=== PATIENT | female | born 1990 | race Caucasian/White ===

== ENCOUNTER 2020-07-13 18:00 | Inpatient (IN) | payer SELFPAY, OTHER ==
[2020-07-13 18:31] VITALS: BMI 31.4
[2020-07-13] MEDS: Lactated Ringers 1,000 ML 15 ML IV (18:50)
[2020-07-13 19:21] VITALS: PULSE 99; O2SAT 99
[2020-07-13 19:22] VITALS: BP 118/69; PULSE 102
[2020-07-13 19:31] LABS: Bacteria 0 SEEN /hpf (None Seen); Mucous, Urine 0 SEEN /hpf (<or=2+); Red Blood Cells-Urine 0 SEEN /hpf (0-5); White Blood Cells 0 SEEN /hpf (0-5)
[2020-07-13 19:37] LABS: Absolute Lymphocyte Count 2.63 X10^3/uL (0.83-4.51); Absolute Neutrophil Count 4.5 X10^3/uL (2.0-7.7); Basophil# 0.02 X10^3/uL; Basophil% 0.3 % (0-1); Eosinophil# 0.15 X10^3/uL; Eosinophils% 1.9 % (0-5); Hematocrit 40.9 % (37-47); Hemoglobin 13.3 g/dL (12.0-15.0); Lymphocyte # 2.63 X10^3/ul (0.83-4.51); Lymphocyte % 34.1 % (19-41); Mean Corp Hgb Conc 32.5 g/dL (32-36); Mean Corpuscular Volume 95.3 fL (81-99); Mean Platelet Vol. 9.7 fl (6.2-12.0); Monocyte% 5.2 % (0-10); NRBC Flagged by Analyzer 0 % (0-5); Neutrophil # 4.49 X10^3/uL (2.7-7.7); Neutrophil % 58.1 % (47-70); Platelet Count 192 K/mm3 (150-450); RBC Distribution Width CV 12.4 % (11.6-14.6); RBC Distribution Width SD 43.6 fl (35.1-43.9); Red Blood Count 4.29 M/mm3 (4.2-5.4); White Blood Count 7.7 K/mm3 (4.4-11.0)
[2020-07-13 19:41] LABS: Color, Urine Straw (Yellow); Glucose, Dipstick Normal (Normal); Ketone-Dipstick Negative (Negative); Leukocyte Esterase-Dipstick 25 /ul (Negative); Nitrite-Dipstick Negative (Negative); Occult Blood-Urine Negative /ul (Negative); Protein-Dipstick Negative (Negative); Urine Bilirubin Dipstick Negative (Negative); Urine Clarity Clear (Clear); Urine Urobilinogen Normal (Normal); Urine pH 6.5 (5.0 - 8.0)
[2020-07-13 19:52] LABS: Squamous Epithelial Cells - UA 0-5 SEEN /hpf (5-10)
[2020-07-13 19:58] LABS: Hemoglobin A1c 5.2 % (3.8-5.6)
[2020-07-13 19:59] LABS: Thyroid Stim Hormone (TSH) 1.24 uIU/mL (0.358-3.74)
[2020-07-13 20:01] VITALS: TEMP 37.2
[2020-07-13] MEDS: miSOPROStol 200 MCG Tablet 800 MCG VAGINAL (20:16)
--- NOTE | 2020-07-13 20:31 | HP.PCM.OB_ITS ---
HPI - General General Date of Admission: 07/13/20 HPI Narrative VALORIE TY, is a 29 F who presents for an induction of labor secondary to demise. She is supposed be 25 weeks along according to her LMP and first feeling movement however ultrasound by her leaf sorter on Monday confirm demise and infant is measuring small around 18 weeks with suspected demise a few weeks ago. She denies any vaginal bleeding or loss of fluid admits decreased movement in the last week or 2. She had an infection with respiratory symptoms in the beginning of but was never tested for Covid. There is no significant family medical history per patient. Maternal Data Information BAY[facility] Calculator Estimated Delivery Date Method Current WG Current Estimate 10/24/20 Manual 25w 2d per LMP? Other Estimates 09/23/20 LMP (Certain) 29w 5d PFSH Medical History (Updated 07/13/20 @ 20:[address] Yue Bowen MD) Family history of hearing loss at age younger than 7 years Allergy/AdvReac Type Severity Reaction Status Date / Time No Known Allergies Allergy Verified 07/13/20 18:52 Social History Smoking Status: Never smoker History Elective abortions Hx Para 6 Spontaneous abortions Hx # Term Pregnancies Ectopic pregnancies Hx # Pregnancies Multiple births # of living children Visit Details OB Flowsheet Initial Weight: Not Recorded Date -?-?-?-?-?-?-?-?-?-?-?-?- EGA Weight BP Urine Prot -?-?-?-?-?-?-?-?-?-?-?-?- Glucose FHR FuHt Pres Dilation -?-?-?-?-?-?-?-?-?-?-?-?- Effaced St Visit Note 07/13/20 -?-?-?-?-?-?-?-?-?-?-?-?- 25w 2d 183 lb 3.266 oz 118/69 Negative mg/dl (Negative) -?-?-?-?-?-?-?-?-?-?-?-?- -?-?-?--?-?-?-?-?-?-?-?-?- NST FHR Rate Baby A Baseline: 0 Assessment Assessment Detail: Bedside ultrasound performed and normal amniotic fluid level seen fetus in breech presentation with no color Doppler flow and no heart tones seen. Large amount of scalp edema seen ROS Constitutional Constitutional: Reports systems reviewed and no addt'l complaints, except as documented ENT HEENT: Reports systems reviewed and no addt'l complaints, except as documented Cardiovascular Cardiovascular: Reports systems reviewed and no addt'l complaints, except as documented Respiratory/Chest Respiratory/Chest: Reports systems reviewed and no addt'l complaints, except as documented Gastrointestinal Gastrointestinal: Reports systems reviewed and no addt'l complaints, except as documented; Denies abdominal pain, nausea or vomiting Genitourinary Genitourinary: Reports systems reviewed and no addt'l complaints, except as documented and movement Details: absent; Denies contractions Musculoskeletal Musculoskeletal: Reports systems reviewed and no addt'l complaints, except as documented Neurologic Neurologic: Reports systems reviewed and no addt'l complaints, except as documented Endocrine Endocrinology: Reports systems reviewed and no addt'l complaints, except as documented Vital Signs Vital Signs Vital Signs: 07/13/20 19:21 07/13/20 19:22 07/13/20 20:01 Temperature 99.0 F Temperature Source Temporal Pulse Rate 99 102 H Blood Pressure 118/69 BP Systolic 118 BP Diastolic 69 Pulse Ox 99 Physical Exam Const alert, oriented x3, no apparent distress and healthy appearing HEENT normocephalic and moist oral mucous membranes Head and Scalp: atraumatic Neck full ROM, no lymphadenopathy, supple and thyroid normal General: trachea midline Lymph Lymphatic: no lymphadenopathy noted Chest inspection of chest normal Resp normal respiratory effort Cardio regular rate GI normal to inspection, nondistended, normoactive bowel sounds, soft to palpation and non-tender Inspection: gravid external exam normal Manual OB Exam: estimated gestational size small, presentation breech, dilated 0, effaced 0 and station -3 Extremity normal to inspection General Extremity: Negative for edema Skin no rashes or lesions noted Neuro deep tendon reflexes 2+ bilaterally Motor Exam: strength 5/5 throughout and clonus absent Psych mental status grossly normal Labs Labs Labs: Blood Type Pending Antibody Screen Pending Hct 40.9 % (37-47) Hgb 13.3 g/dL (12.0-15.0) Assessment & Plan (1) demise, greater than 22 weeks, antepartum: QUALIFIERS: Fetus number: single or unspecified fetus Qualified Code(s): O36.4XX0 - Maternal care for intrauterine , not applicable or unspecified PLAN: Patient presents IOL, plan management for with Cytotec. Pain management: Oral pain control, IV or epidural per patient request. Management of any complications: demise?blood work ordered for evaluation I have reviewed the [facility] and made any clinically relevant updates. (2) Grand multipara: COMMENT: 6 previous home births uncomplicated (3) No care in current : QUALIFIERS: Trimester: second trimester Qualified Code(s): O09.32 - Supervision of with insufficient care, second trimester COMMENT: leaf sorter MAUREEN, US 07/09 confirmed demise measuring behind 18 weeks
[2020-07-13] MEDS: oxyCODONE 5 MG Tablet PO (23:54)
[2020-07-14] VITALS (19 sets, daily range): BP systolic 92–111; BP diastolic 51–68; PULSE 76–95; RESP 18; TEMP 37–38.6; O2SAT 97–100
[2020-07-14] MEDS: miSOPROStol 200 MCG Tablet 400 MCG PO (00:59)
--- NOTE | 2020-07-14 01:15 | EX.PCM.OBRPT ---
Assessment & Plan (1) Trisomy 13 of fetus: COMMENT: suspected based on physical exam, abnormal facies with clieft lip/palate, micrognathia, cystic hygroma, demise. (2) Vaginal delivery: COMMENT: 25 weeks (measuring 18) SM IOL cytotec (3) No care in current : QUALIFIERS: Trimester: second trimester Qualified Code(s): O09.32 - Supervision of with insufficient care, second trimester COMMENT: limousine driver MAUREEN, 07/09 confirmed demise measuring behind 18 weeks (4) Grand multipara: COMMENT: 6 previous home births uncomplicated (5) demise, greater than 22 weeks, antepartum: QUALIFIERS: Fetus number: single or unspecified fetus Qualified Code(s): O36.4XX0 - Maternal care for intrauterine , not applicable or unspecified Maternal Data Information BAY[facility] Calculator Estimated Delivery Date Method Current WG Current Estimate 10/24/20 Manual 25w 3d per LMP? Other Estimates 09/23/20 LMP (Certain) 29w 6d Vaginal Delivery Maternal Presentation Maternal Presentation: Medically Indicated Induction Maternal Presentation: 29-year-old G7, P6 at 25 weeks presents for induction of labor secondary to demise diagnosed by her limousine driver. Ultrasound showed fetus measuring 18 weeks Type of Induction: Cytotec Medical Reason for Induction: demise (25 weeks gestational age per LMP measuring 18 weeks) Operative Information Date of Procedure: 07/14/20 Pre-Operative Diagnosis: demise Post-Operative Diagnosis: same plus genetic abnormality suspect trisomy 13 Surgery / Procedure Performed: Spontaneous Vaginal Delivery Type of Anesthesia: None Estimated Blood Loss: 100 Fluids Replaced: crystalloid Findings Description of Procedure: Patient began pushing and delivered the intact amniotic sac with fetus contained within incomplete breech presentation. After several minutes after delivery of the body the head delivered spontaneously with pushing. Cord was clamped and cut and infant analyzed visually and noted to have severely abnormal facies and a large cystic hygroma. Visible and adequate fusion of the facial structures with suspected cleft lip and cleft palate was seen. Low-set ears and micrognathia as well as poorly formed genitalia but appeared to be male. Expectant management was then done to wait for spontaneous delivery of the placenta. Presentation: Complete Breech Amniotic Membrane Rupture Type: Spontaneous Amniotic Fluid Description: Cloudy Placental Delivery Description: Spontaneous Placenta Disposition: [facility] Cord Vessel Description: 3 Vessels Cord Entanglement: None A Gender: Male (1 minute): 0 (5 minute): 0 Post Vaginal Delivery Medications Given After Delivery: - (cytotec) Episiotomy Description: None Laceration: None Complication Complications: None Procedures Urinary/Genital [id number]: [id number] Vaginal Delivery Only ( demise 25 weeks measuring 18 weeks)
--- NOTE | 2020-07-14 01:20 | PCM.DC ---
Discharge Instructions Diet Discharge Diet: No restrictions Activity Discharge Activity: Return to Normal Activity, May not drive while taking narcotic pain medications. and May Shower May resume sexual activity in: 4-6 weeks Dressing / Incision Call your doctor if your incision/area has: Continuous Slow Oozing, Sudden Increased Bleeding, Increased Pain/ Swelling, Increased Redness and Foul Smelling Discharge Follow Up Care Please Follow Up With: Yue Bowen MD When: Call [phone] to make an appointment with your doctor in 6 weeks. If you had elevated blood pressure or 4th degree laceration, you will need to be seen in 2 weeks. Test Results: Test results from this visit will be discussed in further detail at your follow-up appointment, if applicable. Discharge Plan Admission Admit Date/Time: 07/13/20 18:00 Attending Provider: Yue Bowen
--- NOTE | 2020-07-14 04:23 | NURSING ---
infant weight 4.9oz, 140grams; length 7.5inches long; head circumference 5inches; completed @ 0320 07/14/20
[2020-07-14] MEDS: Naproxen 250 MG Tablet 500 MG PO (07:23)
--- NOTE | 2020-07-14 08:19 | NURSING ---
appropriate for demise
== END 2020-07-14 09:50 | disposition home or self-care (01) | DRG 807 ==
PROVIDERS: Admitting Provider Obstetrics & Gynecology; Visit Provider Obstetrics & Gynecology
DX: O36.4XX0 Maternal care for intrauterine death, not applicable or unspecified (principal); Z37.1 Single stillbirth; Z3A.25 25 weeks gestation of pregnancy
CPT/HCPCS: 59050; 76815; 81001; 83036; 84443; 85025; 86850; 86900; 86901; 87086; 87088; 99218; J7120; G0378

== ENCOUNTER 2023-01-10 12:40 | Inpatient (IN) | payer SELFPAY, OTHER ==
[2023-01-10] VITALS (29 sets, daily range): BP systolic 110–145; BP diastolic 52–82; PULSE 121–141; RESP 16–18; TEMP 36.3–37.7; O2SAT 82–100; BMI 33.6
[2023-01-10] MEDS: Lactated Ringers 1,000 ML 999 ML IV (12:30)
[2023-01-10 12:44] LABS: Bacteria 0 SEEN /hpf (None Seen); Mucous, Urine 0 SEEN /hpf (<or=2+); Red Blood Cells-Urine 0 SEEN /hpf (0-5)
[2023-01-10 12:48] LABS: Absolute Neutrophil Count 13.8 X10^3/uL (2.0-7.7); Basophil# 0.06 X10^3/uL; Basophil% 0.4 % (0-1); Eosinophil# 0.02 X10^3/uL; Eosinophils% 0.1 % (0-5); Hematocrit 39.3 % (37-47); Lymphocyte % 8.5 % (19-41); Mean Corp Hgb Conc 33.1 g/dL (32-36); Mean Corpuscular Hgb 31.5 pg (27.0-32.0); Mean Corpuscular Volume 95.2 fL (81-99); Mean Platelet Vol. 10.7 fl (6.2-12.0); Monocyte# 1.12 X10^3/uL; Monocyte% 6.8 % (0-10); NRBC Flagged by Analyzer 0 % (0-5); Neutrophil # 13.79 X10^3/uL (2.7-7.7); Neutrophil % 83.2 % (47-70); Platelet Count 151 K/mm3 (150-450); RBC Distribution Width CV 14.2 % (11.6-14.6); RBC Distribution Width SD 49.4 fl (35.1-43.9); Red Blood Count 4.13 M/mm3 (4.2-5.4); White Blood Count 16.6 K/mm3 (4.4-11.0)
--- NOTE | 2023-01-10 12:58 | HP.PCM.OB_ITS ---
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 She reports abdominal pain since Monday. Yesterday she began to feel hot and have chills. She had spotting 2 weeks ago but denies other vaginal bleeding. Also reports irregular ctxs. Denies LOF. Maternal Data Information Final BAYRON: 01/28/23 Gestational age: 37&3 PFSH PFS Medical History (Updated 01/10/23 @ 13:[address] Breanna Sands MD) Family history of hearing loss at age younger than 7 years demise, greater than 22 weeks, antepartum No care in current Trisomy 13 of fetus Vaginal delivery Allergy/AdvReac Type Severity Reaction Status Date / Time No Known Allergies Allergy Verified 07/13/20 18:52 Social History Smoking Status: Never smoker History Elective abortions Hx Para 7 Spontaneous abortions Hx # Term Pregnancies Ectopic pregnancies Hx # Pregnancies Multiple births # of living children NST FHR Rate Baby A Baseline: 160 Variability:: Moderate Accelerations:: None Decelerations:: Late (have now resolved) Uterine Activity:: irregular Vital Signs Vital Signs Vital Signs: 01/10/23 11:51 01/10/23 11:51 01/10/23 11:51 Pulse Rate 122 H 124 H Blood Pressure 121/70 H BP Systolic 121 BP Diastolic 70 Pulse Ox 01/10/23 11:51 Pulse Rate Blood Pressure BP Systolic BP Diastolic Pulse Ox 97 Physical Exam Const alert, oriented x3 and no apparent distress General Appearance: cooperative Chest inspection of chest normal Resp normal respiratory effort GI soft to palpation GI Narrative: mild diffuse tenderness that is most prominent in RLQ, no rebound or guarding Inspection: gravid Narrative: cvx - 5/70/-3, AROM clear fluid Labs Labs Labs: Blood Type A POSITIVE Antibody Screen NEGATIVE Hct 39.3 % (37-47) Hgb 13.0 g/dL (12.0-15.0) Syphilis Total Ab Non-reactive Rubella IgG Antibody Non-Reactive (Nonreactive) Hep Bs Antigen Non-Reactive (Nonreactive) Hepatitis C Antibody Non-Reactive (Nonreactive) HIV 1&2 Antibody Non-Reactive (Nonreactive) Group B Strep DNA Pending Assessment & Plan (1) No care in current : QUALIFIERS: Trimester: third trimester Qualified Code(s): O09.33 - Supervision of with insufficient care, third trimester (2) Abdominal pain affecting : (3) Placental abruption in third trimester: PLAN: Plan Patient with no formal PNC. On admission FHT was concerning but after IV hydration FHT is now overall reassuring. Discussed concern for possible placenta abruption. Based on bedside US patient is 37&3. Discussed R/B/A and patient agrees to proceed with induction. AROM performed. GBS sent Plan for ancef as GBS prophylaxis
[2023-01-10 12:59] LABS: AST(SGOT) 13 U/L (15-37); Alanine Aminotransfer ALT/SGPT 16 U/L (13-56); Creatinine, Serum 0.74 mg/dL (0.55-1.02); EST Glomerular Filtration Rate 96 mL/min (>60); Est Glom Filt Rate - Afr Amer 117 mL/min (>60); Uric Acid 5.4 mg/dL (2.6-6.0)
[2023-01-10 13:02] LABS: Anion Gap 6 (5-15); BUN 6 mg/dL (7-18); Calcium,Total 9.1 mg/dL (8.5-10.1); Chloride 106 mmol/L (98-107); Creatinine, Serum 0.75 mg/dL (0.55-1.02); EST Glomerular Filtration Rate 95 mL/min (>60); Est Glom Filt Rate - Afr Amer 115 mL/min (>60); Glucose 92 mg/dL (74-106); Potassium 3.4 mmol/L (3.5-5.1); Sodium Level 136 mmol/L (136-145)
[2023-01-10] MEDS: Cefazolin 2 GM in 0.9% Normal Saline (100mL Bag) 100 ML IV (13:08)
[2023-01-10 13:43] LABS: Amphetamine Urine VISTA NEGATIVE (<1000 ng/mL); Barbiturate Urine VISTA NEGATIVE (< 200 ng/mL); Benzodiazepine Urine VISTA NEGATIVE (< 200 ng/mL); Cocaine Urine VISTA NEGATIVE (< 300 ng/mL); Ecstacy Urine VISTA NEGATIVE (< 500 ng/mL); Methadone Urine VISTA NEGATIVE (< 300 ng/mL); PCP Urine VISTA NEGATIVE (< 25 ng/mL); THC Urine VISTA NEGATIVE (< 50 ng/mL); Vista UDS pH Range 6
[2023-01-10] MEDS: Acetaminophen 500 MG Tablet PO (14:04)
[2023-01-10] MEDS: Lactated Ringers 1,000 ML 50 ML IV (14:05)
[2023-01-10] MEDS: fentaNYL-bupivacaine (epidural) 100 ML BAG EPIDURAL (14:05)
[2023-01-10 14:06] LABS: Rubella IgG Non-Reactive (Nonreactive); Syphilis Antibodies Non-reactive
[2023-01-10 14:32] LABS: Color, Urine Yellow (Yellow); Glucose, Dipstick Normal (Normal); HIV - WCH Non-Reactive (Nonreactive); Hepatitis B Surface Antigen Non-Reactive (Nonreactive); Hepatitis C Antibody Non-Reactive (Nonreactive); Ketone-Dipstick Negative (Negative); Leukocyte Esterase-Dipstick 500 /ul (Negative); Nitrite-Dipstick Negative (Negative); Occult Blood-Urine 25 /ul (Negative); Protein-Dipstick 30 mg/dl (Negative); Specific Gravity, Urine 1.005 (1.002-1.030); Urine Bilirubin Dipstick Negative (Negative); Urine Clarity Clear (Clear); Urine Urobilinogen Normal (Normal)
[2023-01-10] MEDS: Oxytocin 15 Units/NS 250ml 15 UNITS/250 ML IV.SOLN 83 UNITS IV (15:10)
[2023-01-10] MEDS: Oxytocin 10 UNITS/ML Vial IM (15:10)
[2023-01-10 15:18] LABS: Squamous Epithelial Cells - UA 0-5 SEEN /hpf (5-10)
--- NOTE | 2023-01-10 15:19 | EX.PCM.OBRPT ---
Maternal Data Information Final BAYRON: 01/28/23 Gestational age: 37&3 Vaginal Delivery Maternal Presentation Maternal Presentation: Medically Indicated Induction Type of Induction: Amniotomy Medical Reason for Induction: Abruption Operative Information Date of Procedure: 01/10/23 Pre-Operative Diagnosis: Suspected placenta abruption Post-Operative Diagnosis: Same Surgery / Procedure Performed: Spontaneous Vaginal Delivery Type of Anesthesia: Epidural Drain: Santana to straight drain Estimated Blood Loss: 200ml Findings Description of Procedure: Patient was C/C/+2 when arrived to OR. Dayan Lopez CNM present in OR as head with hand. Baby (shoulders & body) delivered through loose nuchal cord. 3VC clamped & cut. Placenta delivered with gentle traction and good uterine tone obtained. Presentation: Vertex (compound as hand/arm present over head) Amniotic Membrane Rupture Type: Artificial Amniotic Fluid Description: Clear Placental Delivery Description: Expressed Placenta Disposition: [facility] Specimen(s) Removed: Placenta Cord Vessel Description: 3 Vessels Cord Entanglement: Around neck x 1, loose Infant A Gender: Male (1 minute): 7 (5 minute): 9 Delayed Cord Clamping: No Post Vaginal Delivery Medications Given After Delivery: IV Pitocin and IM Pitocin Episiotomy Description: None Laceration: None Complication Complications: None
[2023-01-10 15:20] LABS: White Blood Cells 10-25 SEEN /hpf (0-5)
[2023-01-10 15:31] LABS: Group B Strep DNA By PCR Negative (Negative); Internal Control PASS; Probe Check PASS; Specimen Processing Control PASS
[2023-01-10] MEDS: 0.9% Saline Lock 10 ML Syringe IV (16:26)
[2023-01-10] MEDS: LACTATED RINGERS 500 ML 999 ML IV (20:41)
[2023-01-10] MEDS: Acetaminophen 500 MG Tablet 1000 MG PO (22:13)
[2023-01-11 00:45] VITALS: BP 102/52; PULSE 125; RESP 16; TEMP 36.7; O2SAT 94
[2023-01-11] MEDS: Acetaminophen 500 MG Tablet 1000 MG PO (04:36)
[2023-01-11 04:38] VITALS: BP 111/72; PULSE 108; RESP 16; TEMP 36.3; O2SAT 100
--- NOTE | 2023-01-11 08:25 | PCM.DC.SUM ---
Providers Date of Admission: 01/10/23 Primary Care Physician: Sincere Grace PA-C Reason For Visit: VAGINAL DELIVERY Diagnosis Discharge Diagnosis (1) No care in current : Status: Acute Code(s): O09.30 - Supervision of with insufficient care, unspecified trimester Qualifiers: Trimester: third trimester Qualified Code(s): O09.33 - Supervision of with insufficient care, third trimester (2) Placental abruption in third trimester: Status: Acute Code(s): O45.93 - Premature separation of placenta, unspecified, third trimester (3) Grand multipara: Status: Acute Code(s): Z64.1 - Problems related to multiparity (4) (spontaneous vaginal delivery): Status: Acute Code(s): O80 - Encounter for full-term uncomplicated delivery (5) Tachycardia: Status: Acute Code(s): R00.0 - Tachycardia, unspecified Plan PPD 1 Maternal tachycardia at times during hospital stay- Discussed with patient which stated this is normal for her. History of thyroid problems and took medications in the past. Seen by cardiology years ago and had normal EKG. Encouraged follow up for thyroid testing and cardiology consult- patient declines at this time Desires discharge home with follow up care with bricklayer sewer Medications at Discharge Home Medications acetaminophen 500 mg tablet 1,000 mg (2 x 500 mg) PO Q6H PRN PRN Pain 1-10 Or Fever #0 tabs 01/11/23 ibuprofen 600 mg tablet 600 mg PO Q6H PRN PRN Pain Score 1-3 #0 tabs 01/11/23 Hospital Course Operations None Procedures None Summary of Care Provided Minutes Spent on Discharge: 20 Hospital Course: Patient seen at bedside. Ambulating and voiding without difficulty. Lochia decreased. independently. Requesting discharge home today. Planning on follow up care with bricklayer sewer. Physical Exam Const alert and no apparent distress General Appearance: cooperative and comfortable Exam Limitations: no limitations HEENT normocephalic Eyes General Eye: normal appearance of both eyes Neck full ROM General: normal visual inspection Chest Chest: symmetrical chest wall rise Resp normal respiratory effort and normal air movement Effort and Inspection: symmetric chest movement Auscultation: clear to auscultation bilaterally Cardio regular rate and regular rhythm GI normal to inspection, nondistended, normoactive bowel sounds, soft to palpation and non-tender Back/Spine normal ROM Extremity full ROM and no calf tenderness General Extremity: normal exam except as noted Skin no rashes or lesions noted Neuro CN's II-XII intact bilaterally Psych mental status grossly normal Weight / BMI Weight Weight: 195 lb 15.855 oz Body Mass Index (BMI) 33.6 ABG / Lab / Microbiology Data 01/10/23 12:25 01/10/23 12:25 Laboratory: Laboratory Results - last 24 hr 01/10/23 12:25: WBC 16.6 H, RBC 4.13 L, Hgb 13.0, Hct 39.3, MCV 95.2, MCH 31.5, MCHC 33.1, RDW Std Deviation 49.4 H, RDW Coeff of [place] 14.2, Plt Count 151, MPV 10.7, Immature Gran % (Auto) 1.000 H, Neut % (Auto) 83.2 H, Lymph % (Auto) 8.5 L, [place] % (Auto) 6.8, Eos % (Auto) 0.1, Baso % (Auto) 0.4, Absolute Neuts (auto) 13.8 H, Absolute Lymphs (auto) 1.40, Nucleated RBC % 0, Sodium 136, Potassium 3.4 L, Chloride 106, Carbon Dioxide 24.0, Anion Gap 6, BUN 6 L, Creatinine 0.74 01/10/23 12:25: Creatinine 0.75, Est GFR (MDRD) Af Amer 117 01/10/23 12:25: Est GFR (MDRD) Af Amer 115, Est GFR (MDRD) Non-Af 96 01/10/23 12:25: Est GFR (MDRD) Non-Af 95, BUN/Creatinine Ratio 8.0 L, Glucose 92, Uric Acid 5.4, Calcium 9.1, AST 13 L, ALT 16, Urine Color Yellow, Urine Clarity Clear, Urine pH 7.0, Ur Specific [place] 1.005, Urine Protein 30 H, Urine Glucose (UA) Normal, Urine Ketones Negative, Urine Occult Blood 25 H, Urine Nitrite Negative, Urine Bilirubin Negative, Urine Urobilinogen Normal, Ur Leukocyte Esterase 500 H, Urine RBC 0 SEEN, Urine WBC 10-25 SEEN, Ur Squamous Epith Cells 0-5 SEEN, Urine Bacteria 0 SEEN, Urine Mucus 0 SEEN, Urine Opiates Screen NEGATIVE, Urine Methadone Screen NEGATIVE, Ur Barbiturates Screen NEGATIVE, Ur Phencyclidine Scrn NEGATIVE, Ur Amphetamines Screen NEGATIVE, MDMA (Ecstasy) Screen NEGATIVE, U Benzodiazepines Scrn NEGATIVE, Urine Cocaine Screen NEGATIVE, U Cannabinoids Screen NEGATIVE, Ur Drug Screen Comment , Syphilis Total Ab Non-reactive, Hep Bs Antigen Non-Reactive, Hepatitis C Antibody Non-Reactive, HIV 1&2 Antibody Non-Reactive, Rubella IgG Antibody Non-Reactive, Group B Strep DNA Negative, Specimen Comment Not Reportable, Blood Type A POSITIVE, Antibody Screen NEGATIVE Microbiology: Microbiology 01/10/23 12:25 Genital vaginal Chlamydia trachomatis (PCR) - Final 01/10/23 12:25 Genital vaginal Neisseria gonorrhoeae (PCR) - Final D/C Instructions Discharge Diet: No restrictions May resume sexual activity in: 6-8 weeks Weight Bearing Status: Weight bearing as tolerated Call your doctor if you observe: Fever of 101 or Higher, Inability to urinate, Using more than 1 pad per hour, Shortness of breath, Chest pain, Calf discomfort and Uncontrolled pain Please Follow Up With: Katerin Frank CNM When: 2 weeks virtual visit/ 6 weeks in office Meaningful Use Info Meaningful Use Diagnoses (Choose all that apply): None applicable Discharge Plan Admission Admit Date/Time: 01/10/23 12:40 Primary Reason for Your Visit: Labor and Delivery Attending Provider: Breanna Sands Primary Care Provider: Sincere Grace Discharge Orders/Prescriptions Prescriptions: New acetaminophen 500 mg Tablet 1,000 mg PO Q6H PRN PRN (Reason: Pain 1-10 Or Fever) Qty: 0 0RF ibuprofen 600 mg Tablet 600 mg PO Q6H PRN PRN (Reason: Pain Score 1-3) Qty: 0 0RF Discontinued Motrin IB Referrals / Follow Up: Sincere Grace PA-C [Primary Care Provider] - Disposition Disposition (needs filled in before D/C Order can be placed): Home, Self Care
[2023-01-11 08:34] VITALS: BP 115/72; PULSE 112; RESP 16; TEMP 37.2; O2SAT 98
[2023-01-11] MEDS: Ibuprofen 600 MG Tablet PO ×2 (08:42→15:33)
[2023-01-11 14:04] VITALS: BP 121/69; PULSE 103; RESP 16; TEMP 36.6; O2SAT 98
== END 2023-01-11 16:32 | disposition home or self-care (01) | DRG 807 ==
LOC: WPOUT 12:46 → WP 12:46
PROVIDERS: Admitting Provider Obstetrics & Gynecology; PCP Physician Assistant; Referring Provider Obstetrics & Gynecology; Visit Provider Obstetrics & Gynecology
DX: O45.93 Premature separation of placenta, unspecified, third trimester (principal); Z37.0 Single live birth; O69.81X0 Labor and delivery complicated by cord around neck, without compression, not applicable or unspecified; Z3A.37 37 weeks gestation of pregnancy
CPT/HCPCS: 59025; 59050; 80048; 80307; 81001; 82565; 84450; 84460; 84550; 85025; 86703; 86762; 86780; 86803; 86850; 86900; 86901; 87081; 87340; 87491; 87591; 87653; 99221; J7120; A4216; G0378